=== PATIENT | male | born 1990 | race Caucasian/White ===

== ENCOUNTER 2022-02-16 14:20 | Emergency (ER) | payer SELFPAY ==
[~2022-02-16] VITALS: Ht 170.2 cm; Wt 190.5 kg
[2022-02-16 14:41] VITALS: BP 124/67
[2022-02-16 15:37] LABS: BASOPHILS # (AUTO) 0.2 K/uL (0.00-0.22); BASOPHILS % (AUTO) 1.4 % (0.0-2.0); EOSINOPHILS # (AUTO) 0.3 K/uL (0-0.4); EOSINOPHILS % (AUTO) 2.5 % (0.0-4.0); HEMATOCRIT 39.9 % (36-52); HEMOGLOBIN 13.1 g/dL (12.0-18.0); LYMPHOCYTES # (AUTO) 2.8 K/uL (2.0-11.5); LYMPHOCYTES % (AUTO) 24.4 % (20.5-51.1); MEAN CORPUSCULAR HEMOGLOBIN 28 pg (27-31); MEAN CORPUSCULAR HGB CONC 33 g/dL (33-37); MEAN CORPUSCULAR VOLUME 85.9 fL (80-94); MONOCYTES % (AUTO) 9.2 % (1.7-9.3); NEUTROPHILS # (AUTO) 7.2 K/uL (1.8-7.7); NEUTROPHILS % (AUTO) 62.5 % (42.2-75.2); PLATELET COUNT (AUTO) 298 K/uL (140-450); RED BLOOD CELL COUNT(AUTO) 4.64 MIL/uL (4.20-6.10); RED CELL DISTRIBUTION WIDTH 14.1 % (11.6-13.7); WHITE BLOOD COUNT (AUTO) 11.4 K/uL (4.8-10.8)
[2022-02-16 16:10] LABS: ALBUMIN 3.4 g/dL (3.4-5.0); ANION GAP 11.4 (8-16); CARBON DIOXIDE 27.6 mmol/L (21-32); CREATININE 0.8 mg/dL (0.6-1.3); TOTAL BILIRUBIN 0.4 mg/dL (0.0-1.0)
--- NOTE | 2022-02-16 19:23 | NUR ---
PT AMBULATED TO [facility]
--- NOTE | 2022-02-16 19:42 | NUR ---
Dr. Goldberg explained results and treatment plans.
[2022-02-16 20:03] VITALS: BP 127/54
--- NOTE | 2022-02-16 20:03 | NUR ---
Patient discharged with v/s stable. Written and verbal after care instructions given and explained. Patient verbalized understanding. Ambulatory with steady gait. All questions addressed prior to discharge. Advised to follow up with PMD.
== END 2022-02-16 20:03 | disposition home or self-care (01) ==
LOC: MED 14:20
DX: R60.0 Localized edema (principal); R06.02 Shortness of breath; F17.200 Nicotine dependence, unspecified, uncomplicated; F12.90 Cannabis use, unspecified, uncomplicated
CPT/HCPCS: 36415; 71045; 80053; 83880; 84484; 85025; 99284

== ENCOUNTER 2024-03-24 11:27 | Emergency (ER) | payer SELFPAY ==
[~2024-03-24] VITALS: Ht 167.6 cm; Wt 187.3 kg
[2024-03-24 11:58] VITALS: BP 130/72; PULSE 67; RESP 16; TEMP 97; O2SAT 95
[2024-03-24] MEDS ORDERED: LISI20TA29 PO (13:16)
[2024-03-24] MEDS ORDERED: BUPR1TAB45 SL (13:16)
== END 2024-03-24 13:22 | disposition home or self-care (01) ==
LOC: MED 11:27
DX: F11.23 Opioid dependence with withdrawal (principal); I10 Essential (primary) hypertension; M79.10 Myalgia, unspecified site; R51.9 Headache, unspecified; Z76.0 Encounter for issue of repeat prescription; Z79.899 Other long term (current) drug therapy
CPT/HCPCS: 93005; 99283